=== PATIENT | female | born 1950 | race Caucasian/White ===

== ENCOUNTER 2017-06-06 12:13 | Inpatient (IN) | payer BC, MEDICAID ==
[~2017-06-06] VITALS: Ht 175.3 cm; Wt 71.0 kg
[~2017-06-06 12:13] MED LIST: BECL8.7A7 IH; LISI10TA2 PO; PROAIR HFA8.5 GM IH; [UNRECOGNIZED DRUG - OTHER]; [UNRECOGNIZED DRUG - OTHER]
--- NOTE | 2017-06-06 12:30 | PHYS DOC ---
Past Medical History Past Medical History: COPD, Hypertension Past Surgical History: Other Additional Past Surgical Histo: neck tumor Alcohol Use: Occasionally Drug Use: None Adult General Chief Complaint Chief Complaint: DEHYDRATION HPI HPI Patient is a 66 year old female who presents with dehydration. According to her she's been having diarrhea since Sunday and a little bit into Sunday. He states on Sunday she was able to eat and drink fine. She had a doctor's appointment and showed up this morning her blood pressure was 80s systolic. She denies any lightheadedness dizziness. They sent her a prescription to come to the emergency Department didn't 2 L of fluids. She denies any lightheadedness dizziness shortness of breath, nausea vomiting or abdominal pain. She states that she's been eating and drinking well today. Review of Systems Review of Systems Constitutional: Denies fever or chills [] Eyes: Denies change in visual acuity, redness, or eye pain [] HENT: Denies nasal congestion or sore throat [] Respiratory: Denies cough or shortness of breath [] Cardiovascular: No additional information not addressed in HPI [] GI: Denies abdominal pain, nausea, vomiting, bloody stools or diarrhea [] : Denies dysuria or hematuria [] Musculoskeletal: Denies back pain or joint pain [] Integument: Denies rash or skin lesions [] Neurologic: Denies headache, focal weakness or sensory changes [] Endocrine: Denies polyuria or polydipsia [] All other systems were reviewed and found to be within normal limits, except as documented in this note. Current Medications Current Medications Current Medications Medications (Trade) Dose Ordered Sig/Gregg Start Time Stop Time Status Last Admin Dose Admin Ondansetron HCl (Zofran) 4 mg PRN Q8HRS PRN 06/06/17 14:00 06/07/17 13:59 UNV Sodium Chloride 1,000 ml @ 1,000 mls/hr Q1H 06/06/17 12:41 06/06/17 13:40 DC 06/06/17 13:00 1,000 MLS/HR Allergies Allergies Allergies Coded Allergies Type Severity Reaction Last Updated Verified Sulfa (Sulfonamide Antibiotics) Allergy Unknown 10/24/15 Yes erythromycin base Allergy Unknown 10/24/15 Yes Physical Exam Physical Exam Constitutional: Well developed, well nourished, no acute distress, non-toxic appearance. [] HENT: Normocephalic, atraumatic, bilateral external ears normal, oropharynx moist, no oral exudates, nose normal. [] Eyes: PERRLA, EOMI, conjunctiva normal, no discharge. [] Neck: Normal range of motion, no tenderness, supple, no stridor. [] Cardiovascular:Heart rate regular rhythm, no murmur [] Lungs & Thorax: Bilateral breath sounds clear to auscultation [] Abdomen: Bowel sounds normal, soft, no tenderness, no masses, no pulsatile masses. [] Skin: Warm, dry, no erythema, no rash. [] Back: No tenderness, no CVA tenderness. [] Extremities: No tenderness, no cyanosis, no clubbing, ROM intact, no edema. [] Neurologic: Alert and oriented X 3, normal motor function, normal sensory function, no focal deficits noted. [] Psychologic: Affect normal, judgement normal, mood normal. [] Current Patient Data Vital Signs Vital Signs Date Time Temp Pulse Resp B/P (MAP) Pulse Ox O2 Delivery O2 Flow Rate FiO2 06/06/17 12:17 98.0 76 18 132/61 (84) 99 Room Air 98.0 Lab Values Laboratory Tests Test 06/06/17 12:30 White Blood Count 7.3 x10^3/uL (4.0-11.0) Red Blood Count 2.05 x10^6/uL (3.50-5.40) L Hemoglobin 6.7 g/dL (12.0-15.5) *L Hematocrit 19.6 % (36.0-47.0) *L Mean Corpuscular Volume 95 fL (79-100) Mean Corpuscular Hemoglobin 33 pg (25-35) Mean Corpuscular Hemoglobin Concent 34 g/dL (31-37) Red Cell Distribution Width 13.5 % (11.5-14.5) Platelet Count 325 x10^3/uL (140-400) Neutrophils (%) (Auto) 42 % (31-73) Lymphocytes (%) (Auto) 46 % (24-48) Monocytes (%) (Auto) 7 % (0-9) Eosinophils (%) (Auto) 5 % (0-3) H Basophils (%) (Auto) 1 % (0-3) Neutrophils # (Auto) 3.0 x10^3uL (1.8-7.7) Lymphocytes # (Auto) 3.4 x10^3/uL (1.0-4.8) Monocytes # (Auto) 0.5 x10^3/uL (0.0-1.1) Eosinophils # (Auto) 0.3 x10^3/uL (0.0-0.7) Basophils # (Auto) 0.1 x10^3/uL (0.0-0.2) Reticulocyte Count (auto) 1.8 % (0.5-2.5) Sodium Level 135 mmol/L (136-145) L Potassium Level 3.6 mmol/L (3.5-5.1) Chloride Level 101 mmol/L (98-107) Carbon Dioxide Level 25 mmol/L (21-32) Anion Gap 9 (6-14) Blood Urea Nitrogen 17 mg/dL (7-20) Creatinine 0.8 mg/dL (0.6-1.0) Estimated GFR (Cockcroft-Gault) 71.8 Glucose Level 98 mg/dL (70-99) Calcium Level 8.5 mg/dL (8.5-10.1) Magnesium Level 1.9 mg/dL (1.8-2.4) Iron Level 51 ug/dL (50-170) Total Iron Binding Capacity 315 ug/dL (250-450) Iron Saturation 16 % (15-34) Ferritin 121 ng/mL (8-252) Total Bilirubin 0.3 mg/dL (0.2-1.0) Direct Bilirubin 0.1 mg/dL (0.0-0.2) Aspartate Amino Transferase (AST) 28 U/L (15-37) Alanine Aminotransferase (ALT) 34 U/L (14-59) Alkaline Phosphatase 83 U/L (46-116) Lactate Dehydrogenase 175 U/L (81-234) Creatine Kinase 118 U/L (26-192) Creatine Kinase MB (Mass) < 0.5 ng/mL (0.0-3.6) Creatine Kinase MB Relative Index % (0-4) Troponin I Quantitative 0.017 ng/mL (0.000-0.055) WR-Rvu-D-Type Natriuretic Peptide 575 pg/mL (0-124) H Total Protein 6.5 g/dL (6.4-8.2) Albumin 3.5 g/dL (3.4-5.0) Lipase 92 U/L (73-393) Laboratory Tests 06/06/17 12:30 Laboratory Tests 06/06/17 12:30 EKG EKG EKG shows sinus rhythm with rate [address] elevations or concerning T-wave inversions, normal axis, QTC 440 ms, as interpreted by me. Radiology/Procedures Radiology/Procedures [] Impressions: Anemia Hypertension COPD Course & Med Decision Making Course & Med Decision Making Pertinent Labs and Imaging studies reviewed. (See chart for details) Patient states that her stools were black in nature and she had several of these a few days ago. She's not had any additional bleeding or stools since then. I assume that's what her anemia is caused by his hemoglobin is 6.7. She's been typed and screened and one unit of blood is been ordered. Retake, haptoglobin, LDH, ferritin and iron studies have been ordered. She is stable condition at this time be admitted to the floor with GI consultation. Dragon Disclaimer Dragon Disclaimer This electronic medical record was generated, in whole or in part, using a voice recognition dictation system. Departure Departure Impression: Primary Impression: Anemia Disposition: ADMITTED INPATIENT Admitting Physician: Other Condition: STABLE Referrals: JOBY EDWARDS (PCP) JONATHAN MARS MD Jun 06, 2017 12:30
[2017-06-06] MEDS ORDERED: IV NORMAL SALINE 1000ML BAG 1,000 ML IV SCH (12:41)
--- NOTE | 2017-06-06 12:45 | EKG ---
[facility] [address] [place] [address] Test Date: 2017-06-06 Test Time: 12:33:14 Pat Name: FLOYD HERNANDEZ Department: Room: Gender: F Industrial Arts Teacher: LOUANN : 1950 Requested By: JONATHAN MARS Order Number: [id number] Reading MD: Carroll Ewing Measurements Intervals [place] Rate: 74 P: 56 CO: 162 QRS: 7 QRSD: 92 T: 38 QT: 396 QTc: 440 Interpretive Statements SINUS RHYTHM Electronically Signed On 06-11-2017 16:43:39 IRON MELTER by Carroll Ewing
[2017-06-06 12:52] LABS: BASO # 0.1 x10^3/uL (0.0-0.2); BASO % 1 % (0-3); EOS % 5 % (0-3); LYMPH # 3.4 x10^3/uL (1.0-4.8); LYMPH % 46 % (24-48); MEAN CORPUSCULAR HEMOGLOBIN 33 pg (25-35); MEAN CORPUSCULAR HGB CONC 34 g/dL (31-37); MEAN CORPUSCULAR VOLUME 95 fL (79-100); MONO % 7 % (0-9); NEUT % 42 % (31-73); PLATELET COUNT 325 x10^3/uL (140-400); RED BLOOD COUNT 2.05 x10^6/uL (3.50-5.40); RED CELL DISTRIBUTION WIDTH 13.5 % (11.5-14.5); WHITE BLOOD COUNT 7.3 x10^3/uL (4.0-11.0)
[2017-06-06 12:55] LABS: HEMATOCRIT 19.6 % (36.0-47.0); HEMOGLOBIN 6.7 g/dL (12.0-15.5)
[2017-06-06 13:06] LABS: CALCIUM 8.5 mg/dL (8.5-10.1); CREATININE 0.8 mg/dL (0.6-1.0); GFR 71.8; POTASSIUM 3.6 mmol/L (3.5-5.1)
[2017-06-06 13:10] LABS: ALBUMIN 3.5 g/dL (3.4-5.0); DIRECT BILIRUBIN 0.1 mg/dL (0.0-0.2); MAGNESIUM 1.9 mg/dL (1.8-2.4); TOTAL BILIRUBIN 0.3 mg/dL (0.2-1.0); TOTAL PROTEIN 6.5 g/dL (6.4-8.2)
[2017-06-06 13:20] LABS: CKMB MASS < 0.5 ng/mL (0.0-3.6); CREATINE KINASE 118 U/L (26-192)
[2017-06-06 13:30] LABS: % SAT IRON 16 % (15-34); IRON,SERUM 51 ug/dL (50-170)
[2017-06-06 13:48] LABS: FERRITIN 121 ng/mL (8-252); LACTATE DEHYDROGENASE 175 U/L (81-234)
[2017-06-06] MEDS ORDERED: ONDANSETRON PF 4 MG/2 ML VIAL. IV PRN (14:00)
[2017-06-06 14:12] LABS: NEG OBC FOB NEG; POS OBC FOB POS
[2017-06-06 15:00] VITALS: BP 82/47
--- NOTE | 2017-06-06 15:10 | PDOC2 ---
GI CONSULT Reason For Consult: Anemia HPI: HPI: 66 y/o female sent to ER from PCP's office w/ hypotension and concern for dehydration. Has been ill since Sunday 06/03; felt well upon waking, had some coffee, had brief abd cramping w/ urge to stool, passed a normal stool followed by "four hours" of black sticky stools. No stools since Sunday. In general has felt weak and dizzy. Denies SOA or CP. Perhaps a little nausea, but no vomiting or change in appetite or weight. Rare reflux, untreated. H/o intermittent constipation controlled w/ Metamucil PRN. For bodyaches and insomnia, takes two Advil QHS. No h/o anemia except maybe in childhood. No previous EGD. Has had three colonoscopies; the first w/ 13 polyps, the next w/ 3-5 polyps, and the last (>5 years ago performed somewhere in the area) w/ 2- 3 polyps. No GB, liver, or pancreas history. Labs: Hgb 6.7, positive hemoccult, transfusion in process. For comparison, Hgb 14 in /2015. PMH: PMH: HTN, COPD, HLD, removal of benign neck tumor (left) Social History: Smoke: <1 pack per day ALCOHOL: occassional Drugs: None (marijuana in the past) ROS: GEN: Denies fevers, chills, sweats HEENT: Denies blurred vision, sore throat CV: Denies chest pain RESP: Denies shortness of air, cough GI: Per HPI : Denies hematuria, dysuria ENDO: Denies weight changes NEURO: +dizziness MSK: +weakness +bodyaches SKIN: Denies jaundice, pruritus Vitals: Vitals: Vital Signs Date Time Temp Pulse Resp B/P (MAP) Pulse Ox O2 Delivery O2 Flow Rate FiO2 06/06/17 14:35 78 16 94/52 (66) 99 Room Air 06/06/17 12:17 98.0 98.0 Labs: Labs: Laboratory Tests Test 06/06/17 12:30 06/06/17 13:58 White Blood Count 7.3 x10^3/uL (4.0-11.0) Red Blood Count 2.05 x10^6/uL (3.50-5.40) Hemoglobin 6.7 g/dL (12.0-15.5) Hematocrit 19.6 % (36.0-47.0) Mean Corpuscular Volume 95 fL (79-100) Mean Corpuscular Hemoglobin 33 pg (25-35) Mean Corpuscular Hemoglobin Concent 34 g/dL (31-37) Red Cell Distribution Width 13.5 % (11.5-14.5) Platelet Count 325 x10^3/uL (140-400) Neutrophils (%) (Auto) 42 % (31-73) Lymphocytes (%) (Auto) 46 % (24-48) Monocytes (%) (Auto) 7 % (0-9) Eosinophils (%) (Auto) 5 % (0-3) Basophils (%) (Auto) 1 % (0-3) Neutrophils # (Auto) 3.0 x10^3uL (1.8-7.7) Lymphocytes # (Auto) 3.4 x10^3/uL (1.0-4.8) Monocytes # (Auto) 0.5 x10^3/uL (0.0-1.1) Eosinophils # (Auto) 0.3 x10^3/uL (0.0-0.7) Basophils # (Auto) 0.1 x10^3/uL (0.0-0.2) Reticulocyte Count (auto) 1.8 % (0.5-2.5) Sodium Level 135 mmol/L (136-145) Potassium Level 3.6 mmol/L (3.5-5.1) Chloride Level 101 mmol/L (98-107) Carbon Dioxide Level 25 mmol/L (21-32) Anion Gap 9 (6-14) Blood Urea Nitrogen 17 mg/dL (7-20) Creatinine 0.8 mg/dL (0.6-1.0) Estimated GFR (Cockcroft-Gault) 71.8 Glucose Level 98 mg/dL (70-99) Calcium Level 8.5 mg/dL (8.5-10.1) Magnesium Level 1.9 mg/dL (1.8-2.4) Iron Level 51 ug/dL (50-170) Total Iron Binding Capacity 315 ug/dL (250-450) Iron Saturation 16 % (15-34) Ferritin 121 ng/mL (8-252) Total Bilirubin 0.3 mg/dL (0.2-1.0) Direct Bilirubin 0.1 mg/dL (0.0-0.2) Aspartate Amino Transf (AST/SGOT) 28 U/L (15-37) Alanine Aminotransferase (ALT/SGPT) 34 U/L (14-59) Alkaline Phosphatase 83 U/L (46-116) Lactate Dehydrogenase 175 U/L (81-234) Creatine Kinase 118 U/L (26-192) Creatine Kinase MB (Mass) < 0.5 ng/mL (0.0-3.6) Creatine Kinase MB Relative Index % (0-4) Troponin I Quantitative 0.017 ng/mL (0.000-0.055) PO-Gpm-V-Type Natriuretic Peptide 575 pg/mL (0-124) Total Protein 6.5 g/dL (6.4-8.2) Albumin 3.5 g/dL (3.4-5.0) Lipase 92 U/L (73-393) Stool Occult Blood Positive (NEG) Allergies: Coded Allergies: Sulfa (Sulfonamide Antibiotics) (Verified Allergy, Unknown, 10/24/15) erythromycin base (Verified Allergy, Unknown, 10/24/15) Medications: Current Medications Medications (Trade) Dose Ordered Sig/Gregg Route PRN Reason Start Time Stop Time Status Last Admin Dose Admin Sodium Chloride 1,000 ml @ 1,000 mls/hr Q1H IV 06/06/17 12:41 06/06/17 13:40 DC 06/06/17 13:00 Imaging: Imaging: - PE: GEN: NAD HEENT: Atraumatic, PERRL LUNGS: CTAB HEART: RRR ABD: NABS, S/ND/NT EXTREMITY: No edema SKIN: pale, scar left neck NEURO/PSYCH: A & O 3 A/P: A/P: Normocytic anemia, positive fecal occult, melena -sticky black stools on Sunday, no recurrence -anemia parameters WNL, normal BUN Weakness, dizziness, hypotension Bodyaches, insomnia, NSAID use -2 Advil QHS Constipation -controlled w/ Metamucil PRN CRC screen, h/o colon polyps -three previous colonoscopies, last >5 years ago -- Agree w/ transfusion, NPO. Start IV PPI. Will review plans for EGD w/ Dr. Bruce. JAMES CALDERA Jun 06, 2017 15:10
[2017-06-06] MEDS: PANTOPRAZOLE IV PUSH 40 MG VIAL. IVP SCH (16:04)
[2017-06-06 19:00] VITALS: BP 104/57
[2017-06-06 19:57] LABS: HEMATOCRIT 21.8 % (36.0-47.0); HEMOGLOBIN 7.5 g/dL (12.0-15.5); RED BLOOD COUNT 2.32 x10^6/uL (3.50-5.40)
[2017-06-06] MEDS ORDERED: ALBUTEROL SULFATE 2.5 MG/3 ML NEBU. NEB PRN (20:00)
[2017-06-06] MEDS ORDERED: NON FORMULARY ITEM (Albuterol Sulfate (Proair Hfa Inhaler) 2 PUFF) IH SCH (20:00)
--- NOTE | 2017-06-06 20:08 | HP ---
ADMIT DATE: 06/06/2017 CHIEF COMPLAINT: Hypotension and anemia. HISTORY OF PRESENT ILLNESS: The patient is a 66-year-old woman who presented to her primary care physician for routine evaluation and was found with significant hypotension, prompting referral to the Emergency Room. There, she was found with anemia in a fix and promptly admitted. The patient's history goes back to at least Sunday. The patient relates that she had a normal bowel movement after drinking her morning cup of coffee and shortly thereafter started having massive amounts of melena going on for about 4 hours. The episode spontaneously resolved and she has not had a bowel movement since. She has pampered her intestine since with Gatorade and very slowly stepping up on food. This morning actually was the first day she ate normally. She denies any nausea, vomiting during the entire time period. Had occasional crampy pain in the epigastric area. PAST MEDICAL HISTORY: COPD, hypertension, hyperlipidemia. FAMILY HISTORY: No GI abnormalities known. SOCIAL HISTORY: Lives with her . Smokes less than a pack a day, none since Sunday. Alcohol only occasionally. History of cannabis use. ALLERGIES: SULFA, ERYTHROMYCIN. MEDICATIONS: MAR reconciled with home medications. REVIEW OF SYSTEMS: Positive as per HPI. Rest of organ system review asked and answered negatively. PHYSICAL EXAMINATION: VITAL SIGNS: From today show blood pressure of 82/47, respiratory rate at 20, pulse at 84. She is afebrile. GENERAL: This is a 66-year-old well-nourished woman, alert and oriented, in no acute distress. HEENT: Shows pale conjunctivae. Oral mucosa is pink and moist. NECK: Soft and supple. LUNGS: Clear. HEART: Regular rate and rhythm. ABDOMEN: Positive bowel sounds, no tenderness to palpation throughout. EXTREMITIES: Show no edema. SKIN: Warm, soft and dry without any rash. NEUROLOGIC: She appears grossly intact. LABORATORY DATA: CBC with a WBC of 7.3, hemoglobin 6.7, MCV of 95, platelets of 325. Chemistries with a BUN and creatinine of 17 and 0.8, normal electrolytes, normal LFTs and lipase. OB stool positive. IMAGING: Chest x-ray revealed chronic obstructive pulmonary disease with stable mild interstitial changes in both bases. Abdomen flat film with no acute abdominal abnormality. ASSESSMENT AND PLAN: The patient is a 66-year-old smoker who presented with hypotension and anemia. She is actually asymptomatic, although relates that she was dizzy yesterday. She has received PRBC x 2. A repeat H and H is pending. Gastroenterology has been consulted with plans for EGD in a.m. The patient does carry a diagnosis of hypertension, but no home medications are listed at this time. I wonder if part of her hypotension is due to decreased p.o. intake/dehydration and continuation of oral antihypertensive medications. I will monitor closely. She will receive fluids and further blood transfusions as needed. The patient had a moderate anemia requiring blood transfusion. Her MCV is actually completely normal. This appears to be a one-time event, possibly AVM. Appreciate GI input and help with management. MACIEL MARSHALL MD DR: UR/nts JOB#: [id number] / [id number] JASON
[2017-06-06] MEDS ORDERED: ALPR0.5T6 PO (22:21)
[2017-06-06] MEDS ORDERED: ALPRAZolam 0.5 MG TABLET PO PRN (22:30)
[2017-06-06 23:00] VITALS: BP 106/53
[2017-06-07 03:00] VITALS: BP 108/55
[2017-06-07 06:05] LABS: BASO % 1 % (0-3); EOS % 6 % (0-3); HEMATOCRIT 21.7 % (36.0-47.0); HEMOGLOBIN 7.5 g/dL (12.0-15.5); LYMPH # 2.9 x10^3/uL (1.0-4.8); LYMPH % 43 % (24-48); MEAN CORPUSCULAR HEMOGLOBIN 32 pg (25-35); MEAN CORPUSCULAR HGB CONC 34 g/dL (31-37); MEAN CORPUSCULAR VOLUME 93 fL (79-100); MONO % 8 % (0-9); NEUT % 43 % (31-73); PLATELET COUNT 302 x10^3/uL (140-400); RED BLOOD COUNT 2.33 x10^6/uL (3.50-5.40); RED CELL DISTRIBUTION WIDTH 13.9 % (11.5-14.5); WHITE BLOOD COUNT 6.8 x10^3/uL (4.0-11.0)
[2017-06-07 06:22] LABS: CALCIUM 8.5 mg/dL (8.5-10.1); CREATININE 0.7 mg/dL (0.6-1.0); GFR 83.7; POTASSIUM 4.1 mmol/L (3.5-5.1)
[2017-06-07 07:26] VITALS: BP 137/62
[2017-06-07] MEDS: PANTOPRAZOLE IV PUSH 40 MG VIAL. IVP SCH (08:32)
[2017-06-07 11:06] VITALS: BP 115/67
[2017-06-07] MEDS ORDERED: IV RINGERS,LACTATED 1000ML 1,000 ML IV SCH (13:39)
[2017-06-07] MEDS ORDERED: LIDOCAINE 1% PF 2 ML VIAL. ID PRN (13:45)
[2017-06-07] MEDS ORDERED: MIDAZOLAM HCL/PF 2 MG/2 ML VIAL. IV PRN (13:45)
[2017-06-07] MEDS ORDERED: fentaNYL PF VIAL 100 MCG/2 ML VIAL IV PRN ×2 (13:45)
[2017-06-07] MEDS ORDERED: PROPOFOL 20 ML IV ONE (14:05)
--- NOTE | 2017-06-07 14:37 | PDOC4 ---
PROCEDURE Procedure EGD with biopsies Indication: melena/acute anemia Meds: per anesthesia Findings: E--Normal. GEJ at 43cm. G--1 cm immediate pre-pyloric ulcer w/o stigmata of recent bleeding, otherwise normal. Biopsies from antrum and fundus re: H.pylori. D--Normal to second portion. Tolerated well. IMP: Prepyloric ulcer; NSAID use suspect, biopsies pending re: H.pylori. Appears at low risk for re-bleeding. REC: PO PPI; would treat at least 4 weeks. Await biopsies; if evidence for H.pylori, treat. F/u with me in 2 weeks. PO iron for 6 months, bid-tid with food. OK to advance diet ad fatemeh and discharge. Avoid NSAIDs. Thanks. EMORY HERNANDEZ MD Jun 07, 2017 14:37
[2017-06-07 15:28] VITALS: BP 140/71
[2017-06-07] MEDS ORDERED: AMOX1TAB61 PO (16:42)
[2017-06-07] MEDS ORDERED: PANT40TA5 PO (16:42)
--- NOTE | 2017-06-07 16:48 | PDOC3 ---
Discharge Summary [facility] Date of Admission: Jun 06, 2017 Discharge Date: Jun 07, 2017 Admitting Diagnosis hypotension, anemia Problems: Final Diagnosis Problems Medical Problems: (1) Anemia Status: Acute Hypotension, likely due to hypovolemia Left tooth pain, suspecting early infection Pre-pyloric ulcer, due to NSAIDs CONSULTS gastroenterology Procedures EGD Brief Hospital Course Ms. Manrique is a 66 old female who was admitted for severe anemia. GI was consulted, and an EGD showed a pre-pyloric ulcer, likely due to NSAID use. She has tolerated a diet since the procedure, and pain is controlled. She is medically stable for discharge. She has been counseled to avoid NSAIDs. Daily PPI is recommended, along with GI follow up. Additionally, antibiotic is prescribed for left lower tooth pain with suspected early infection. I recommended close f/u with a dentist. d/w nurse Gen: alert, oriented, NAD HEENT: nc/at, left cheek mild edema without erythema. Left lower posterior oropharynx edema. unable to appreciate purulence Resp: nl respirations Abd: nd, soft, nabs, nttp Psych: calm Problems: Scheduled Albuterol Sulfate (Proair Hfa Inhaler), 2 PUFF IH PRN Q4-6HRS, (Reported) Amoxicillin/Potassium Clav (Augmentin 875-125 Tablet), 1 TAB PO BID Pantoprazole Sodium (Pantoprazole Sodium), 40 MG PO DAILYAC Scheduled PRN Alprazolam (Alprazolam), 1 TAB PO PRN BID PRN for ANXIETY, (Reported) Discontinued Medications Beclomethasone Dipropionate (Qvar 40MCG Inhaler), 1 PUFF IH BID, (Reported) Lisinopril (Lisinopril), Unknown Dose PO DAILY, (Reported) [beneflex], (Reported) [exfina], (Reported) GARO HOWARD MD Jun 07, 2017 16:48
[2017-06-08] MEDS ORDERED: PANTOPRAZOLE 40 MG TABLET.DR. PO SCH (07:30)
--- NOTE | 2017-06-11 13:31 | PATHOLOGY ---
PATHOLOGY REPORT * * * * * * * * FINAL DIAGNOSIS: A. Gastric biopsies, antrum: - Chronic gastritis, mild, with focal intestinal metaplasia. B. Gastric biopsies, gastric fundus: - Slight chronic inflammation. (JPM:greg; 06/11/2017) COMMENT: Sections of the gastric antral biopsy show congestion and mild chronic inflammation with focal intestinal metaplasia. An immunoperoxidase stain for Helicobacter is obtained. No Helicobacter organisms are identified. Sections of the gastric fundus biopsy show congestion and slight chronic inflammation. An immunoperoxidase stain for Helicobacter is obtained. No Helicobacter organisms are identified. There is no evidence of malignancy. Special stain performed: Immunoperoxidase stain for Helicobacter on A1 and B1. (JPM:greg; 06/11/2017) REPORT ELECTRONICALLY SIGNED BY: Srinivas Eisenberg M.D. DATE/TIME: 06/11/2017 13:30 * * * * * * * * GROSS PATHOLOGY: A. Received in formalin labeled "Elizabeth Hernandez, antrum BX," are 2 segments of davis soft tissue measuring 0.7 x 0.2 x 0.3 cm in aggregate dimensions and ranging from 0.3 to 0.4 cm in maximum dimension. The specimen is submitted entirely in cassette A1. B. Received in formalin labeled "Elizabeth Hernandez, fundus BX," are 2 segments of davis soft tissue measuring 0.7 x 0.4 x 0.3 cm in aggregate dimensions and ranging from 0.3 to 0.6 cm in maximum dimension. The specimen is submitted entirely in cassette B1. (TSD; 06/08/2017) INITIAL CPT CODE(S): A; 90717, 78577 B; 46988, 42529 Professional services performed by [facility] at [address] [address] Technical services performed by [facility] at [address] [place] [address], [address] [address]. SPECIMEN(S) RECEIVED: A.Antrum biopsy B.Fundus biopsy CLINICAL HISTORY: Anemia PATIENT: ELIZABETH HERNANDEZ /AGE: 4 1950 (Age: 66) PATIENT #: [id number] ALT CASE #: SPECIMEN COLLECTION DATE: 06/07/2017 SPECIMEN RECEIVED DATE: 06/08/2017 [facility] - [address] [place] [address] - PHONE: [phone] * * * END OF REPORT * * *
== END 2017-06-07 17:14 | disposition home or self-care (01) | DRG 379 ==
LOC: ER 12:13 → 5 NORTH 13:15
PROVIDERS: ADMIT Internal Medicine Hematology & Oncology; ATTEND Internal Medicine Hematology & Oncology
PROC: 30233N1 Transfusion of Nonautologous Red Blood Cells into Peripheral Vein, Percutaneous Approach (ICD-10-PCS; principal; 2017-06-06)
PROC: 0DB68ZX Excision of Stomach, Via Natural or Artificial Opening Endoscopic, Diagnostic (ICD-10-PCS; 2017-06-07 14:30)
DX: K25.4 Chronic or unspecified gastric ulcer with hemorrhage (principal); J44.9 Chronic obstructive pulmonary disease, unspecified; D64.9 Anemia, unspecified; E78.5 Hyperlipidemia, unspecified; F17.210 Nicotine dependence, cigarettes, uncomplicated; D50.0 Iron deficiency anemia secondary to blood loss (chronic); E86.0 Dehydration; E86.1 Hypovolemia; F41.9 Anxiety disorder, unspecified; T39.395A Adverse effect of other nonsteroidal anti-inflammatory drugs [NSAID], initial encounter; G47.00 Insomnia, unspecified; I10 Essential (primary) hypertension; J39.2 Other diseases of pharynx; K08.89 Other specified disorders of teeth and supporting structures; K21.9 Gastro-esophageal reflux disease without esophagitis; Z88.2 Allergy status to sulfonamides; Z88.8 Allergy status to other drugs, medicaments and biological substances
CPT/HCPCS: 36415; 80048; 80076; 82274; 82553; 82728; 83010; 83540; 83550; 83615; 83690; 83735; 83880; 84484; 85025; 85027; 85045; 86850; 86900; 86901; 86920; 93005; 94250; 94640; 96360; C9113; J2704; J7030; J7120; J7613; P9016; 99285-25

== ENCOUNTER → 2017-08-09 | Outpatient (CLI) | payer BC, MEDICAID ==
[2017-08-09] MEDS: IOHEXOL 300 MG/ML 100ML VIAL. IV ×2 (09:28)
== END | disposition home or self-care (01) ==
LOC: CT 08:53
DX: Z12.31 Encounter for screening mammogram for malignant neoplasm of breast (principal); I70.0 Atherosclerosis of aorta; I10 Essential (primary) hypertension; J44.9 Chronic obstructive pulmonary disease, unspecified; R91.8 Other nonspecific abnormal finding of lung field; R91.1 Solitary pulmonary nodule; Z72.0 Tobacco use
CPT/HCPCS: 71260; 77067; Q9967

== ENCOUNTER → 2017-09-12 | Outpatient (CLI) | payer BC, MEDICAID ==
[2017-09-12] MEDS: REGADENOSON 0.4 MG/5 ML DISP.SYRIN. IV (10:14)
== END | disposition home or self-care (01) ==
LOC: NM 08:28
DX: I10 Essential (primary) hypertension (principal); I36.1 Nonrheumatic tricuspid (valve) insufficiency; Z87.891 Personal history of nicotine dependence
CPT/HCPCS: 78452; 93017; 93306; 96374; 96375; 96376; A9500; J2785

== ENCOUNTER → 2020-03-22 | Outpatient (CLI) | payer MEDICARE, MEDICAID ==
[~2020-03-22] MED LIST changes: +ALBU2.5V8 IH; +ALPR0.5T6 PO; +AMOX1TAB61 PO; +ATOR40TA59 PO; +BREO ELLIPTA 11 EACH IH; +FERR325T14 PO; +LOSA1TAB19 PO; +PANT40TA77 PO; -PROAIR HFA8.5 GM IH; +VENL150T PO
--- NOTE | 2020-03-22 17:12 | RAD ---
EXAM: CT Chest without IV contrast INDICATION: Reason: ABNORMAL CHEST X-RAY. Patient has a history of COPD and had new faint right chest opacity on chest x-ray of 12/18/2018 for which radiographic follow-up was recommended. TECHNIQUE: Multi-detector row CT images were acquired from the thoracic inlet through the upper abdomen without the use of IV contrast. Sagittal and coronal images were acquired from the transaxial data. All CT scans performed at this facility utilize dose optimization techniques as appropriate to the exam, including the following: Automated exposure control and adjustment of the mA and/or KV according to patient size (this includes techniques or standardized protocols for targeted exams where dose is indication/reason for exam). COMPARISON: Chest x-ray 12/18/2018, CT chest without IV contrast 08/09/2017. FINDINGS: The absence of IV contrast limits evaluation of soft tissue pathology. CARDIOVASCULAR: Upper normal aortic diameter in the ascending portion measuring 3.9 cm with no evidence of an intramural hematoma. Three-vessel aortic arch. Scattered aortic calcifications. Multivessel coronary calcifications. Normal heart size. MEDIASTINUM & ISMAEL: No masses. Stable borderline enlarged precarinal node measuring 1 cm short axis diameter. LUNGS: Paraseptal pattern upper lobe predominant emphysema is present. A 5 mm peripheral right middle lobe nodule (image 34 of series 3) and a 3 mm nodule along the major fissure (image 35 of series 3) are noted. There are no significantly changed from 2018 ((image 35 of series 2 and image 33 of series 2 on 08/09/2017). PLEURAL SPACE: No pleural effusions or pneumothorax. OSSEOUS & SOFT TISSUE: Unremarkable ABDOMEN: 2.7 cm oval low-density lesion in the right hepatic lobe near the dome, likely a cyst. IMPRESSION: Paraseptal pattern emphysema with tiny nodules in the right lung that appear not significantly changed in over [address] lung cancer screening if appropriate. Otherwise no specific follow-up required. Electronically signed by: Gabe Starks MD (03/22/2020 5:09 PM) [id number]
== END | disposition home or self-care (01) ==
LOC: CT 11:15
PROVIDERS: ATTEND Family Medicine
DX: R93.89 Abnormal findings on diagnostic imaging of other specified body structures (principal); I25.10 Atherosclerotic heart disease of native coronary artery without angina pectoris; R91.1 Solitary pulmonary nodule; J43.9 Emphysema, unspecified
CPT/HCPCS: 71250

== ENCOUNTER → 2020-06-28 | Outpatient (CLI) | payer MEDICARE, MEDICAID ==
--- NOTE | 2020-06-28 15:58 | RAD ---
DATE: 06/28/2020 1:31 PM EXAM: MAMMO GRACE SCREENING BILATERAL HISTORY: Screening COMPARISON: 08/09/2017, 06/27/2010 Bilateral CC and MLO views of the breasts were performed. Bilateral breast tomosynthesis was performed in CC and MLO projections. This study was interpreted with the benefit of Computerized Aided Detection (CAD). FINDINGS: Breast Density: SCATTERED The breast parenchyma shows scattered fibroglandular densities. Breast parenchyma level B No suspicious masses, microcalcifications or architectural distortion is present to suggest malignancy in either breast. The visualized axillae are unremarkable. IMPRESSION: No mammographic evidence of malignancy. BI-RADS CATEGORY: 1 NEGATIVE RECOMMENDED FOLLOW-UP: 12M 12 MONTH FOLLOW-UP Annual screening mammography is recommended, unless clinically indicated sooner based on symptoms or change in physical exam. PQRS compliance statement: Patient information was entered into a reminder system with a target due date for the next mammogram. Mammography is a sensitive method for finding small breast cancers, but it does not detect them all and is not a substitute for careful clinical examination. A negative mammogram does not negate a clinically suspicious finding and should not result in delay in biopsying a clinically suspicious abnormality. "Our facility is accredited by the [employer] Mammography Program."
== END ==
LOC: MAMMO 13:22
PROVIDERS: ATTEND Family Medicine
DX: Z12.31 Encounter for screening mammogram for malignant neoplasm of breast (principal)
CPT/HCPCS: 77063; 77067